=== PATIENT | male | born 1980 | race Caucasian/White ===

== ENCOUNTER 2017-09-19 06:45 | Day surgery (SDC) | payer BC ==
[~2017-09-19] VITALS: Ht 182.9 cm; Wt 161.9 kg
[2017-09-19 07:22] VITALS: BP 165/124
[2017-09-19] MEDS ORDERED: hydrALAzine 20 MG/ML, 1ML IV PRN (07:30)
[2017-09-19] MEDS ORDERED: PLEASE ENTER ALLERGIES MC SCH (07:30)
[2017-09-19] MEDS ORDERED: FENTANYL PF 100 MCG/2ML IV PRN (07:30)
[2017-09-19] MEDS ORDERED: LABETALOL 5MG/ML, 20ML IV PRN (07:30)
[2017-09-19] MEDS ORDERED: ONDANSETRON 2MG/ML, 2ML IVPush PRN (07:30)
[2017-09-19] MEDS ORDERED: MEPERIDINE/PF 25MG/0.5ML IVPush PRN (07:30)
[2017-09-19] MEDS ORDERED: LIDOCAINE-MPF 2% ,5ML ONE (07:36)
[2017-09-19] MEDS ORDERED: PROPOFOL 10 MG/ML, 20ML ONE (07:36)
[2017-09-19] MEDS ORDERED: LACTATED RINGERS 1,000 ML IV SCH (07:38)
== END 2017-09-19 09:00 ==
LOC: OUT 06:45
PROVIDERS: ATTEND Surgery
DX: K63.5 Polyp of colon (principal); K64.1 Second degree hemorrhoids; K64.4 Residual hemorrhoidal skin tags; F17.210 Nicotine dependence, cigarettes, uncomplicated; Z90.49 Acquired absence of other specified parts of digestive tract; Z72.89 Other problems related to lifestyle; Z88.8 Allergy status to other drugs, medicaments and biological substances
CPT/HCPCS: 45380; 88305; J2704; J3490; J7120